=== PATIENT | male | born 1955 | race African-American/Black ===

== ENCOUNTER 2024-11-10 12:45 | Inpatient (IN) | payer OTHER ==
[~2024-11-10] VITALS: Ht 182.9 cm; Wt 109.3 kg
[2024-11-10 13:54] LABS: BASOPHILS % (AUTO) 0.2 % (0.0-2.0); EOSINOPHILS % (AUTO) 0.1 % (0.0-6.0); HEMATOCRIT 38 % (39-51); HEMOGLOBIN 12.6 g/dL (13.5-17.5); LYMPHOCYTES # (AUTO) 0.5 K/uL (0.8-4.8); LYMPHOCYTES % (AUTO) 2.4 % (20.0-44.0); MEAN CORPUSCULAR HEMOGLOBIN 29 PG (26.0-33.0); MEAN CORPUSCULAR HGB CONC 33 g/dl (31.0-36.0); MEAN CORPUSCULAR VOLUME 88 fL (80-96); MONOCYTES % (AUTO) 5.2 % (2.0-12.0); NEUTROPHILS # (AUTO) 17.1 K/uL (1.8-8.9); NEUTROPHILS % (AUTO) 92.1 % (43.0-81.0); PLATELET COUNT (AUTO) 284 K/uL (150-450); RED BLOOD CELL COUNT(AUTO) 4.36 MIL/uL (4.5-6.0); RED CELL DISTRIBUTION WIDTH 15.4 % (11.5-15.0); WHITE BLOOD COUNT (AUTO) 18.6 K/uL (4.3-11.0)
[2024-11-10] MEDS ORDERED: DILTIAZEM HCL IV 125 MG in IV D5W 100 ML IV ONE (14:00)
[2024-11-10] MEDS ORDERED: DILTIAZEM HCL 50 MG IV IV ONE (14:00)
[2024-11-10 14:02] LABS: CALCIUM, SERUM 8.6 mg/dL (8.5-10.1); CARBON DIOXIDE 24 mmol/L (21-32); CHLORIDE 99 mmol/L (98-107); CREATININE 1.5 mg/dL (0.6-1.3); GLUCOSE 116 mg/dL (74-106); POTASSIUM 3.5 mmol/L (3.5-5.1); SODIUM SERUM 135 mmol/L (136-145); UREA NITROGEN, BLOOD 16 mg/dL (7-18)
[2024-11-10 14:15] LABS: ALANINE AMINOTRANSFERASE 34 U/L (12-78); ALBUMIN 2.6 g/dL (3.4-5.0); ALKALINE PHOSPHATASE 98 U/L (46-116); ASPARTATE AMINOTRANSFERASE 48 U/L (15-37); BILIRUBIN,TOTAL 1.1 mg/dL (0.2-1.0); TOTAL PROTEIN, SERUM 8.8 g/dL (6.4-8.2)
[2024-11-10] MEDS ORDERED: ONDANSETRON HCL/PF 4 MG/2 ML VIAL ONE (14:16)
[2024-11-10] MEDS: MORPHINE SULFATE INJ 2 MG/ML DISP.SYRIN IV ONE (14:23)
[2024-11-10] MEDS: ONDANSETRON HCL/PF - ER 4 MG/2 ML VIAL IV ONE (14:23)
[2024-11-10] MEDS: IV NS 0.9% 1,000 ML BAG IV ONE ×2 (14:24→14:30)
[2024-11-10] MEDS: AMIODARONE 150 MG in IV D5W 100 ML IV ONE (14:30)
[2024-11-10] MEDS: PIPERACILLIN /TAZOBACTAM 3.375 G in IV D5W 50 ML IV ONE (14:30)
[2024-11-10 14:44] LABS: MAGNESIUM 1.8 mg/dL (1.8-2.4)
[2024-11-10] MEDS: AMIODARONE 450 MG in IV D5W 250 ML IV ONE (15:15)
[2024-11-10] MEDS ORDERED: ACETAMINOPHEN 325 MG TABLET PO PRN (15:30)
[2024-11-10] MEDS ORDERED: MAGNESIUM HYDROXIDE 30 ML UDC PO PRN (15:30)
[2024-11-10] MEDS ORDERED: MAG HYDROX/AL HYDROX/SIMETH 30 ML UDC PO PRN (15:30)
[2024-11-10] MEDS ORDERED: HYDROCODONE/APAP 5/325MG TABLET PO PRN (15:30)
[2024-11-10] MEDS ORDERED: ONDANSETRON HCL/PF 4 MG/2 ML VIAL IVP PRN (15:30)
[2024-11-10] MEDS: VANCOMYCIN 1 GM in IV D5W 250 ML IV ONE (15:45)
[2024-11-10] MEDS ORDERED: MORPHINE SULFATE INJ 4 MG/ML DISP.SYRIN IV PRN (16:00)
[2024-11-10] MEDS ORDERED: IV NS 0.9% 1,000 ML IV SCH (16:00)
[2024-11-10 16:48] LABS: BILIRUBIN,DIRECT 0.3 mg/dL (0.0-0.2)
[2024-11-10 17:06] LABS: LACTIC ACID REFLEX 2.5 mmol/L (0.4-1.9)
[2024-11-10 18:00] VITALS: BP 109/67; TEMP 98.5; O2SAT 94
[2024-11-10] MEDS ORDERED: PIPERACILLIN /TAZOBACTAM 3.375 G in IV D5W 50 ML IV SCH (18:00)
[2024-11-10] MEDS: IV NS 0.9% 1,000 ML IV ONE (18:19)
[2024-11-10] MEDS: VANCOMYCIN 750 MG in IV D5W 250 ML IV ONE (18:20)
[2024-11-10 20:00] VITALS: BP 124/76; TEMP 98.1; O2SAT 100
[2024-11-10] MEDS: PIPERACILLIN /TAZOBACTAM 3.375 G in IV D5W 100 ML IV SCH (22:40)
[2024-11-11] VITALS: BP 105/64; TEMP 97.3; O2SAT 100
[2024-11-11] MEDS: AMIODARONE 450 MG in IV D5W 241 ML IV PRN (00:16)
[2024-11-11 04:00] VITALS: BP 96/66; TEMP 99.7; O2SAT 96
[2024-11-11] MEDS: VANCOMYCIN 1 GM in IV D5W 250ml IV SCH (04:14)
[2024-11-11 08:00] VITALS: BP 191/62; TEMP 98.1; O2SAT 98
[2024-11-11] MEDS: PANTOPRAZOLE 40 MG VIAL IV SCH (08:17)
[2024-11-11 12:00] VITALS: BP 104/68; TEMP 97.5; O2SAT 98
[2024-11-11 12:38] LABS: BASOPHILS # (AUTO) 0.1 K/uL (0.0-0.2); BASOPHILS % (AUTO) 0.8 % (0.0-2.0); EOSINOPHILS # (AUTO) 0.1 K/uL (0.0-0.7); EOSINOPHILS % (AUTO) 0.7 % (0.0-6.0); HEMATOCRIT 36 % (39-51); HEMOGLOBIN 11.8 g/dL (13.5-17.5); LYMPHOCYTES % (AUTO) 8.1 % (20.0-44.0); MEAN CORPUSCULAR HEMOGLOBIN 29 PG (26.0-33.0); MEAN CORPUSCULAR HGB CONC 33 g/dl (31.0-36.0); MEAN CORPUSCULAR VOLUME 87 fL (80-96); MONOCYTES # (AUTO) 1.7 K/uL (0.1-1.30); NEUTROPHILS # (AUTO) 9.9 K/uL (1.8-8.9); NEUTROPHILS % (AUTO) 77.4 % (43.0-81.0); PLATELET COUNT (AUTO) 261 K/uL (150-450); RED BLOOD CELL COUNT(AUTO) 4.14 MIL/uL (4.5-6.0); RED CELL DISTRIBUTION WIDTH 15.4 % (11.5-15.0); WHITE BLOOD COUNT (AUTO) 12.7 K/uL (4.3-11.0)
[2024-11-11 12:43] LABS: APPEARANCE,URINE TURBID (CLEAR); BILIRUBIN,URINE NEGATIVE (NEGATIVE); BLOOD, URINE TRACE-INTA Ery/uL (NEGATIVE); COLOR,URINE YELLOW (YELLOW); KETONES,URINE NEGATIVE (NEGATIVE); LEUKOCYTE ESTERASE ,URINE TRACE (NEGATIVE); NITRITE, URINE NEGATIVE (NEGATIVE); PROTEIN,URINE 1+ mg/dl (NEGATIVE); UGLUCOSE NEGATIVE (NEGATIVE)
[2024-11-11 12:47] LABS: ADD URINE CULTURE YES; BACTERIA,URINE 2+ /HPF (None Seen); CREATININE, URINE 169.2 MG/DL (30.0-125.0); MUCUS,URINE Few /LPF (None Seen); RBC,URINE 0-2 /HPF (0-2); URINE TOTAL PROTEIN 91.8 mg/dL (0-11.9)
[2024-11-11 13:00] LABS: CREATININE 1.5 mg/dL (0.6-1.3); MAGNESIUM 2.1 mg/dL (1.8-2.4); PHOSPHORUS 2.7 mg/dL (2.5-4.9); POTASSIUM 3.2 mmol/L (3.5-5.1)
[2024-11-11 13:05] LABS: EOSINOPHIL,URINE None Seen
[2024-11-11 13:11] LABS: THYROID STIMULATING HORMONE 3.57 uIU/mL (0.358-3.74)
[2024-11-11] MEDS: POTASSIUM CHLORIDE 20 MEQ TAB.PRT.SR PO ONE (13:15)
[2024-11-11 16:00] VITALS: BP 114/81; TEMP 99.5; O2SAT 94
[2024-11-11] MEDS ORDERED: IV NS 0.9% 250 ML IV PRN (18:30)
[2024-11-11 20:00] VITALS: BP 104/79; TEMP 99.9; O2SAT 95
[2024-11-12] VITALS: BP 113/80; TEMP 99.5; O2SAT 98
[2024-11-12] MEDS: TEMAZEPAM 15 MG CAPSULE PO PRN
[2024-11-12] MEDS: VANCOMYCIN 1 GM in IV D5W 250ml IV SCH (01:38)
[2024-11-12 04:00] VITALS: BP 111/90; TEMP 99; O2SAT 98
[2024-11-12 07:05] LABS: BASOPHILS # (AUTO) 0.1 K/uL (0.0-0.2); BASOPHILS % (AUTO) 0.6 % (0.0-2.0); EOSINOPHILS # (AUTO) 0.1 K/uL (0.0-0.7); EOSINOPHILS % (AUTO) 1.2 % (0.0-6.0); HEMATOCRIT 33 % (39-51); HEMOGLOBIN 10.7 g/dL (13.5-17.5); LYMPHOCYTES # (AUTO) 1.1 K/uL (0.8-4.8); LYMPHOCYTES % (AUTO) 9.6 % (20.0-44.0); MEAN CORPUSCULAR HEMOGLOBIN 29 PG (26.0-33.0); MEAN CORPUSCULAR HGB CONC 33 g/dl (31.0-36.0); MEAN CORPUSCULAR VOLUME 87 fL (80-96); MONOCYTES # (AUTO) 1.5 K/uL (0.1-1.30); MONOCYTES % (AUTO) 12.8 % (2.0-12.0); NEUTROPHILS % (AUTO) 75.8 % (43.0-81.0); PLATELET COUNT (AUTO) 270 K/uL (150-450); RED BLOOD CELL COUNT(AUTO) 3.73 MIL/uL (4.5-6.0); RED CELL DISTRIBUTION WIDTH 15.4 % (11.5-15.0); WHITE BLOOD COUNT (AUTO) 11.9 K/uL (4.3-11.0)
[2024-11-12 07:24] LABS: ALBUMIN 1.9 g/dL (3.4-5.0); BILIRUBIN,TOTAL 1.1 mg/dL (0.2-1.0); CREATININE 1.4 mg/dL (0.6-1.3); MAGNESIUM 2.2 mg/dL (1.8-2.4); POTASSIUM 3.6 mmol/L (3.5-5.1); TOTAL PROTEIN, SERUM 7.8 g/dL (6.4-8.2)
[2024-11-12 08:00] VITALS: BP 120/80; TEMP 98.4; O2SAT 96
[2024-11-12] MEDS: IV NS 0.9% 1,000 ML IV SCH (08:28)
[2024-11-12] MEDS: PANTOPRAZOLE 40 MG TABLET.DR PO SCH (09:05)
[2024-11-12] MEDS: DILTIAZEM HCL CD 240 MG PO SCH (09:06)
[2024-11-12] MEDS: ENOXAPARIN SODIUM 100 MG/ML DISP.SYRIN SQ SCH (09:07)
[2024-11-12] MEDS: Z GUARD REMEDY 4 OZ OINT TP SCH (10:00)
[2024-11-12] MEDS: DIGOXIN INJ 0.5 MG/2 ML AMPUL IV SCH (11:09)
[2024-11-12 12:00] VITALS: BP 114/88; TEMP 98.1; O2SAT 94
[2024-11-12 16:00] VITALS: BP 114/73; TEMP 98.6; O2SAT 95
[2024-11-12 16:01] LABS: LYMPHOCYTES % (MANUAL) 15 % (16-48); MONOCYTES % (MANUAL) 9 % (0-11.0); NEUTROPHILS % (MANUAL) 74 (42-76); PLATELET ESTIMATE ADEQUATE; REACTIVE LYMPHOCYTES 2 % (0-0)
[2024-11-12 20:00] VITALS: BP 136/80; TEMP 98.6; O2SAT 95
[2024-11-13] VITALS: BP 125/85; TEMP 97.7; O2SAT 95
[2024-11-13 04:00] VITALS: BP 132/74; TEMP 97.9; O2SAT 99
[2024-11-13] MEDS: VANCOMYCIN 1 GM in IV D5W 250ml IV SCH ×2 (04:38→12:05)
[2024-11-13 06:07] LABS: PTH, INTACT 76 pg/mL (15-65)
[2024-11-13 08:35] LABS: BASOPHILS # (AUTO) 0.1 K/uL (0.0-0.2); BASOPHILS % (AUTO) 0.5 % (0.0-2.0); EOSINOPHILS # (AUTO) 0.2 K/uL (0.0-0.7); EOSINOPHILS % (AUTO) 2.2 % (0.0-6.0); HEMATOCRIT 35 % (39-51); HEMOGLOBIN 11.5 g/dL (13.5-17.5); LYMPHOCYTES # (AUTO) 1.3 K/uL (0.8-4.8); LYMPHOCYTES % (AUTO) 13.1 % (20.0-44.0); MEAN CORPUSCULAR HEMOGLOBIN 29 PG (26.0-33.0); MEAN CORPUSCULAR HGB CONC 33 g/dl (31.0-36.0); MEAN CORPUSCULAR VOLUME 87 fL (80-96); MONOCYTES # (AUTO) 1.3 K/uL (0.1-1.30); MONOCYTES % (AUTO) 12.9 % (2.0-12.0); NEUTROPHILS # (AUTO) 7.3 K/uL (1.8-8.9); NEUTROPHILS % (AUTO) 71.3 % (43.0-81.0); PLATELET COUNT (AUTO) 327 K/uL (150-450); RED BLOOD CELL COUNT(AUTO) 3.99 MIL/uL (4.5-6.0); RED CELL DISTRIBUTION WIDTH 15.3 % (11.5-15.0); WHITE BLOOD COUNT (AUTO) 10.3 K/uL (4.3-11.0)
[2024-11-13 09:25] LABS: ALBUMIN 1.9 g/dL (3.4-5.0); BILIRUBIN,TOTAL 0.9 mg/dL (0.2-1.0); CREATININE 1.3 mg/dL (0.6-1.3); MAGNESIUM 2.4 mg/dL (1.8-2.4); PHOSPHORUS 3.2 mg/dL (2.5-4.9); POTASSIUM 3.7 mmol/L (3.5-5.1); TOTAL PROTEIN, SERUM 8.1 g/dL (6.4-8.2)
[2024-11-13] MEDS: CLOTRIMAZOLE 1% 15 GM TUBE TP SCH (09:29)
[2024-11-13] MEDS: AMMONIUM LACTATE 227 GM BOTTLE TP SCH (09:30)
[2024-11-13] MEDS: Z GUARD REMEDY 4 OZ OINT TP PRN (09:30)
[2024-11-13 12:00] VITALS: BP 140/77; TEMP 97.9; O2SAT 99
[2024-11-13 12:12] LABS: BAND % (MANUAL) 2 % (0.0-5.0); EOSINOPHILS % (MANUAL) 3 % (0-4); LYMPHOCYTES % (MANUAL) 20 % (16-48); MONOCYTES % (MANUAL) 4 % (0-11.0); MYELOCYTES % 3 % (0-0); NEUTROPHILS % (MANUAL) 68 (42-76); PLATELET ESTIMATE ADEQUATE
[2024-11-13] MEDS: DIGOXIN 0.25 MG TABLET PO SCH (13:58)
[2024-11-13 16:00] VITALS: BP 136/83; TEMP 98
[2024-11-13] MEDS: APIXABAN 5 MG TABLET PO SCH (16:26)
[2024-11-13 20:00] VITALS: BP 145/92; TEMP 97.7; O2SAT 97
[2024-11-14] VITALS: BP 149/89; TEMP 97.7; O2SAT 96
[2024-11-14 04:00] VITALS: BP 146/86; TEMP 98.4; O2SAT 95
[2024-11-14 04:41] LABS: BASOPHILS % (AUTO) 0.4 % (0.0-2.0); EOSINOPHILS # (AUTO) 0.2 K/uL (0.0-0.7); EOSINOPHILS % (AUTO) 2.3 % (0.0-6.0); HEMATOCRIT 34 % (39-51); HEMOGLOBIN 11.6 g/dL (13.5-17.5); LYMPHOCYTES # (AUTO) 0.9 K/uL (0.8-4.8); LYMPHOCYTES % (AUTO) 8.9 % (20.0-44.0); MEAN CORPUSCULAR HEMOGLOBIN 29 PG (26.0-33.0); MEAN CORPUSCULAR HGB CONC 34 g/dl (31.0-36.0); MEAN CORPUSCULAR VOLUME 87 fL (80-96); MONOCYTES # (AUTO) 1.1 K/uL (0.1-1.30); MONOCYTES % (AUTO) 10.1 % (2.0-12.0); NEUTROPHILS # (AUTO) 8.2 K/uL (1.8-8.9); NEUTROPHILS % (AUTO) 78.3 % (43.0-81.0); PLATELET COUNT (AUTO) 373 K/uL (150-450); RED BLOOD CELL COUNT(AUTO) 3.95 MIL/uL (4.5-6.0); RED CELL DISTRIBUTION WIDTH 15.3 % (11.5-15.0); WHITE BLOOD COUNT (AUTO) 10.5 K/uL (4.3-11.0)
[2024-11-14 05:15] LABS: CALCIUM, SERUM 7.9 mg/dL (8.5-10.1); CREATININE 1.1 mg/dL (0.6-1.3); POTASSIUM 4.2 mmol/L (3.5-5.1)
[2024-11-14 08:00] VITALS: BP 143/91; TEMP 98.2; O2SAT 98
[2024-11-14] MEDS ORDERED: IV NS 0.9% 250 ML IV ONE (10:20)
[2024-11-14] MEDS ORDERED: IOHEXOL-350 100 ML VIAL IV ONE (10:20)
[2024-11-14 12:00] VITALS: BP 147/76; TEMP 99.1; O2SAT 96
[2024-11-14] MEDS: VANCOMYCIN 1 GM in IV D5W 250ml IV SCH (14:43)
[2024-11-14] MEDS ORDERED: CLOT15CR35 TP (15:18)
[2024-11-14] MEDS ORDERED: PANT40TA49 PO (15:18)
[2024-11-14] MEDS ORDERED: APIX5TAB PO (15:18)
[2024-11-14] MEDS ORDERED: DILT240C88 PO (15:18)
[2024-11-14] MEDS ORDERED: VANC1FRO2 IV (15:18)
[2024-11-14] MEDS ORDERED: PIPE3.379 IV (15:18)
[2024-11-14] MEDS ORDERED: Digoxin PO (15:18)
[2024-11-14 16:00] VITALS: BP 124/77; TEMP 98.1; O2SAT 96
[2024-11-15 16:10] LABS: *SPE A/G RATIO 0.4 (0.7-1.7); *SPE ALBUMIN 2.1 g/dL (2.9-4.4); *SPE ALPHA-1-GLOBULIN 0.5 g/dL (0.0-0.4); *SPE ALPHA-2-GLOBULIN 1.1 g/dL (0.4-1.0); *SPE BETA GLOBULIN 1.1 g/dL (0.7-1.3); *SPE GLOBULIN, TOTAL 4.7 g/dL (2.2-3.9); *SPE M-SPIKE Not Observed g/dL (Not Observed); *SPE PROTEIN TOTAL 6.8 g/dL (6.0-8.5)
== END 2024-11-14 18:00 | DRG 871 ==
LOC: ER 12:50 → ICUOV 15:55 → MEDSG1 17:10 → TELE1 17:14 → TELE-TD 17:34 → TELE1 11-12 10:21
PROVIDERS: ATTEND Nurse Practitioner Acute Care
PROC: 05HB33Z Insertion of Infusion Device into Right Basilic Vein, Percutaneous Approach (ICD-10-PCS; principal; 2024-11-10)
PROC: B54MZZA Ultrasonography of Right Upper Extremity Veins, Guidance (ICD-10-PCS; 2024-11-10)
DX: A41.9 Sepsis, unspecified organism (principal); G93.41 Metabolic encephalopathy; J15.69 Pneumonia due to other Gram-negative bacteria; N17.0 Acute kidney failure with tubular necrosis; L03.115 Cellulitis of right lower limb; L03.116 Cellulitis of left lower limb; E44.0 Moderate protein-calorie malnutrition; E87.1 Hypo-osmolality and hyponatremia; E87.20 Acidosis, unspecified; R65.20 Severe sepsis without septic shock; D64.9 Anemia, unspecified; E66.9 Obesity, unspecified; E88.09 Other disorders of plasma-protein metabolism, not elsewhere classified; I48.91 Unspecified atrial fibrillation; I89.0 Lymphedema, not elsewhere classified; E83.9 Disorder of mineral metabolism, unspecified; N18.9 Chronic kidney disease, unspecified; Z79.01 Long term (current) use of anticoagulants; Z68.32 Body mass index [BMI] 32.0-32.9, adult; D72.829 Elevated white blood cell count, unspecified; R10.9 Unspecified abdominal pain
CPT/HCPCS: 36415; 70450-TC; 70496-TC; 70498-TC; 71045-TC; 73590-TC; 74018; 76770-TC; 80048-TC; 80053-TC; 80061-TC; 80202-TC; 81001; 82248-TC; 82550-TC; 82570-TC; 83605-TC; 83735-TC; 83880; 83970; 84100-TC; 84155; 84165; 84300-TC; 84443-TC; 84484-TC; 85025-TC; 87040-TC; 87086-TC; 93307-TC; 93970-TC; 97110-TC; 97116-TC; 97530-TC; 97535-TC; A4223; G0378; J0282; J1160; J1650; J2270; J2405; J2470; J2543; J3370; J3371; J3490; J7030; J7050; J7060; Q9967